=== PATIENT | female | born 1975 | race Caucasian/White ===

== ENCOUNTER 2025-07-16 14:22 | Outpatient (CLI) | payer BC, SELFPAY ==
--- NOTE | ~2025-07-16 | US_ITS ---
EXAMINATION: US pelvic complete w TV INDICATION: Menorrhagia. Irregular periods. Comparison:No prior studies for comparison. TECHNIQUE: Multiple transabdominal and endovaginal sonographic images of the pelvis performed. FINDINGS: The uterus measures 9.6 x 4.5 x 6.7 cm. There is fluid in the cervix. The endometrial complex measures 8 mm. The right ovary measures 1.6 x 1.6 x 1.6 cm and the left ovary measures 1.8 x 1.3 x 1.3 cm. There are small follicles in each ovary. Normal doppler signal in both ovaries. There is no free fluid in the pelvis. There are no abnormal masses seen on either side. IMPRESSION: 1. Unremarkable pelvic ultrasound. Reviewed, dictated and finalized at location O.
== END 2025-07-16 14:23 | disposition home or self-care (01) ==
PROVIDERS: PCP Student in an Organized Health Care Education/Training Program; Visit Provider Student in an Organized Health Care Education/Training Program
DX: R10.20 Pelvic and perineal pain unspecified side (principal)
CPT/HCPCS: 76830; 76856